=== PATIENT | female | born 1985 | race Caucasian/White ===

== ENCOUNTER 2020-07-06 08:53 | Emergency (ER) | payer MEDICAID ==
[~2020-07-06] VITALS: Ht 175.3 cm; Wt 90.3 kg
[~2020-07-06 08:53] MED LIST: PRENAVITE TABLETS
[2020-07-06 09:31] LABS: Basophils # (auto) 0 10 ^3/uL (0-0.2); Basophils % (auto) 0.4 % (0.0-2.0); Eosinophils # (auto) 0.3 10 ^3/uL (0-0.8); Eosinophils % (auto) 4.6 % (0.0-7.0); Hematocrit 36.5 % (36.0-46.0); Hemoglobin 12.5 g/dL (12.2-16.2); Lymphocytes # (auto) 1.7 10 ^3/uL (0.4-5.4); Lymphocytes % (auto) 23.9 % (10.0-50.0); Mean Corpuscular Hemoglobin 30.3 pg (28.0-32.0); Mean Corpuscular Hgb Conc. 34.2 g/dL (32.0-36.0); Mean Corpuscular Volume 88.8 fL (80.0-100.0); Monocytes # (auto) 0.3 10 ^3/uL (0-1.3); Monocytes % (auto) 4.4 % (0.0-12.0); Neutrophils # (auto) 4.8 10 ^3/uL (1.6-8.6); Neutrophils % (auto) 66.7 % (37.0-80.0); Nucleated Red Blood Cells % 0.1 %; Platelet Count (auto) 240 10^3/uL (140-450); Red Cell Distribution Width 12.8 % (11.8-14.3); White Blood Cell 7.2 10^3/uL (4.4-10.8)
[2020-07-06 09:34] LABS: Urine Bacteria NONE SEEN /hpf (None Seen); Urine Blood 2+ /uL (Negative); Urine Specific Gravity 1.008 (1.001-1.035); Urine WBC 1 /hpf (0 - 5)
[2020-07-06 11:24] VITALS: BP 136/87
== END 2020-07-06 11:25 | disposition home or self-care (01) ==
LOC: ER 08:53
DX: O20.8 Other hemorrhage in early pregnancy (principal); Z3A.01 Less than 8 weeks gestation of pregnancy
CPT/HCPCS: 36415; 76805; 81001; 84702; 85025

== ENCOUNTER 2020-08-17 12:38 | Observation (INO) | payer MEDICAID ==
[2020-08-17] MEDS ORDERED: PREN-96 PO (12:56)
== END 2020-08-17 15:09 | disposition home or self-care (01) ==
LOC: LDRP 12:38
PROVIDERS: ADMIT Specialist; ATTEND Specialist
DX: O26.892 Other specified pregnancy related conditions, second trimester (principal); R19.7 Diarrhea, unspecified; Z20.828 Contact with and (suspected) exposure to other viral communicable diseases; Z3A.23 23 weeks gestation of pregnancy
CPT/HCPCS: 36415; 59025; 81002; 87426; G0378; U0003

== ENCOUNTER 2020-12-05 19:08 | Inpatient (IN) | payer MEDICAID ==
[~2020-12-05] VITALS: Ht 30.5 cm; Wt 0.5 kg
[~2020-12-05 19:08] MED LIST changes: +PREN-96 PO
[2020-12-05] MEDS ORDERED: miSOPROStol 50 MCG per PRE-CUT 1/2 TAB PO STA (20:36)
[2020-12-05] MEDS ORDERED: LACTATED RINGER'S 1,000 ML IV SCH (20:45)
[2020-12-05] MEDS ORDERED: PROMETHAZINE HCL 25 MG/ML 1ML IM PRN (20:45)
[2020-12-05] MEDS ORDERED: PHISODERM TOP SOLN 240ML BTL TOP PRN (20:45)
[2020-12-05] MEDS ORDERED: LIDOCAINE 2%HCL (LOCAL ANESTH.) INJ 20ML MDV IJ ONE (20:45)
[2020-12-05] MEDS ORDERED: BUTORPHANOL TARTRATE 2 MG/1 ML VIAL IV PRN (20:45)
[2020-12-05] MEDS ORDERED: DERMOPLAST 60ML BOTTLE TOP PRN (20:45)
[2020-12-05] MEDS ORDERED: WITCH HAZEL-GLYCERIN PAD TOP PRN (20:45)
[2020-12-05 21:25] LABS: Basophils # (auto) 0.1 10 ^3/uL (0-0.2); Basophils % (auto) 0.6 % (0.0-2.0); Eosinophils # (auto) 0.1 10 ^3/uL (0-0.8); Eosinophils % (auto) 0.6 % (0.0-7.0); Hematocrit 35.9 % (36.0-46.0); Hemoglobin 12.6 g/dL (12.2-16.2); Lymphocytes # (auto) 2.1 10 ^3/uL (0.4-5.4); Lymphocytes % (auto) 19.7 % (10.0-50.0); Mean Corpuscular Hemoglobin 29.9 pg (28.0-32.0); Mean Corpuscular Hgb Conc. 35.2 g/dL (32.0-36.0); Mean Corpuscular Volume 84.9 fL (80.0-100.0); Monocytes # (auto) 0.4 10 ^3/uL (0-1.3); Monocytes % (auto) 4.2 % (0.0-12.0); Neutrophils % (auto) 74.9 % (37.0-80.0); Nucleated Red Blood Cells % 0.1 %; Platelet Count (auto) 196 10^3/uL (140-450); Red Blood Cells 4.23 10^6/uL (4.0-5.20); Red Cell Distribution Width 14.3 % (11.8-14.3); White Blood Cell 10.7 10^3/uL (4.4-10.8)
[2020-12-05 21:42] LABS: Albumin 2.9 g/dL (3.4-5.0); Calcium 8.1 mg/dL (8.5-10.1); Potassium 3.6 mmol/L (3.5-5.1)
[2020-12-05 21:45] LABS: BUN/Creatinine Ratio 13.6; Bilirubin, Total 0.4 mg/dL (0.2-1.0); INR 0.89 (0.9-1.15); Partial Thromboplastin Time 24.2 sec (23.0-31.2); Total Protein 6.5 g/dL (6.4-8.2)
[2020-12-05] MEDS ORDERED: LACT. RINGERS/OXYTOCIN 20UNITS 1,000 ML IV STA (22:56)
[2020-12-05] MEDS ORDERED: LACT. RINGERS/OXYTOCIN 20UNITS 1,000 ML IV ONE (22:57)
[2020-12-06 03:06] LABS: Alcohol, Urine < 3.0 mg/dL (0-10); Amphetamine Screen, Urine NEGATIVE (NEGATIVE); Barbiturate Scree,Urine NEGATIVE (NEGATIVE); Benzodiazephine Screen, Urine NEGATIVE (NEGATIVE); Cannabinoid Screen, Urine NEGATIVE (NEGATIVE); Cocaine Screen, Urine NEGATIVE (NEGATIVE); Opiate Scree,Urine NEGATIVE (NEGATIVE); Phencyclidine Screen, Urine NEGATIVE (NEGATIVE)
[2020-12-06] MEDS: IBUPROFEN 600 MG TAB PO PRN ×4 (03:36→21:47)
[2020-12-06 07:17] VITALS: BP 114/68
[2020-12-06 11:12] VITALS: BP 121/73
[2020-12-06 15:00] VITALS: BP 139/86
[2020-12-06] MEDS: ACETAMINOPHEN 325 MG TAB PO PRN (15:50)
[2020-12-06 19:00] VITALS: BP 112/73
[2020-12-06 23:30] VITALS: BP 120/72
[2020-12-07] MEDS: IBUPROFEN 600 MG TAB PO PRN ×3 (00:26→09:28)
[2020-12-07] MEDS: ACETAMINOPHEN 325 MG TAB PO PRN (00:26)
[2020-12-07 03:30] VITALS: BP 114/74
[2020-12-07 06:30] VITALS: BP 114/53
[2020-12-07] MEDS ORDERED: NITROGLYCERIN 0.4 MG SL TAB SL PRN (10:15)
[2020-12-07] MEDS ORDERED: MORPHINE SULF INJ 2 MG/ML SYRINGE 1ML IV PRN (10:15)
[2020-12-08 08:06] LABS: RPR Non Reactive (Non Reactive)
== END 2020-12-07 09:55 | disposition home or self-care (01) | DRG 560 ==
LOC: OBSVTOIN 19:08 → LDRP 19:08
PROVIDERS: ADMIT Specialist; ATTEND Specialist
PROC: 10E0XZZ Delivery of Products of Conception, External Approach (ICD-10-PCS; principal; 2020-12-05)
DX: O69.81X0 Labor and delivery complicated by cord around neck, without compression, not applicable or unspecified (principal); Z3A.39 39 weeks gestation of pregnancy; Z37.0 Single live birth; Z20.822 Contact with and (suspected) exposure to COVID-19
CPT/HCPCS: 36415; 59025; 59409; 80053; 80307; 81002; 84112; 85025; 85610; 85730; 86592; 86850; 86900; 86901; 87426; 94760; 96360; 96361; 96365; 96372; 96374; G0378; J2590

== ENCOUNTER → 2021-01-01 | Day surgery (SDC) | payer MEDICAID ==
[~2021-01-01] VITALS: Ht 175.3 cm; Wt 87.5 kg
[~2021-01-01] MED LIST changes: +GLYCOPYRROLATE 0.2 MG/ML 1ML VIAL ONE; +IBUP800T27 PO; +LACTATED RINGER'S 1,000 ML IV SCH; +LIDOCAINE 2% (LOCAL ANESTH.) PF 5ml SDV ONE; +MIDAZOLAM HCL 1MG/1ML-2 ML VIAL ONE; +NEOSTIGMINE 1 MG/ML INJ (10mg/10ML VIAL) ONE; +ONDANSETRON HCL 4 MG/2 ML VIAL IV PRN; +ONDANSETRON HCL 4 MG/2 ML VIAL ONE; -PRENAVITE TABLETS; +PROPOFOL 10 MG/ML 20 ML IV ONE; +ROCURONIUM 10MG/ML 10ML VIAL IV ONE; +ceFAZolin 1GM/50ML 50 ML IV ONE; +fentaNYL CITRATE 100 MCG/2 ML VL ONE
[2021-01-01] MEDS: HYDROmorphone HCL 2 MG/ML VL IV PRN ×2 (08:45→08:55)
[2021-01-01 09:20] VITALS: BP 120/84
== END | disposition home or self-care (01) ==
LOC: SUR 06:20
PROVIDERS: ATTEND Obstetrics & Gynecology
DX: Z30.2 Encounter for sterilization (principal); Z98.890 Other specified postprocedural states; Z79.899 Other long term (current) drug therapy; Z20.822 Contact with and (suspected) exposure to COVID-19; Z91.018 Allergy to other foods; Z91.012 Allergy to eggs
CPT/HCPCS: 58671; 86850; 86900; 86901; J0690; J1170; J2001; J2250; J2405; J2704; J3010; U0003

== ENCOUNTER 2024-04-19 19:36 | Emergency (ER) | payer MEDICAID ==
[~2024-04-19] VITALS: Ht 175.3 cm; Wt 92.1 kg
[~2024-04-19 19:36] MED LIST changes: -GLYCOPYRROLATE 0.2 MG/ML 1ML VIAL ONE; +IBUP-1456 PO; -IBUP800T27 PO; -LACTATED RINGER'S 1,000 ML IV SCH; -LIDOCAINE 2% (LOCAL ANESTH.) PF 5ml SDV ONE; -MIDAZOLAM HCL 1MG/1ML-2 ML VIAL ONE; -NEOSTIGMINE 1 MG/ML INJ (10mg/10ML VIAL) ONE; -ONDANSETRON HCL 4 MG/2 ML VIAL IV PRN; -ONDANSETRON HCL 4 MG/2 ML VIAL ONE; -PROPOFOL 10 MG/ML 20 ML IV ONE; -ROCURONIUM 10MG/ML 10ML VIAL IV ONE; -ceFAZolin 1GM/50ML 50 ML IV ONE; -fentaNYL CITRATE 100 MCG/2 ML VL ONE
[2024-04-19] MEDS: DexAMETHasone SOD PHOS 10MG/1ML VIAL INJ IM ONE (20:14)
[2024-04-19] MEDS: FAMOTIDINE 20 MG TAB PO ONE (20:14)
[2024-04-19 20:15] VITALS: BP 124/88; PULSE 103; RESP 20; TEMP 98.6; O2SAT 97
[2024-04-19] MEDS ORDERED: PRED20TA2 PO (21:30)
== END 2024-04-19 21:41 | disposition home or self-care (01) ==
LOC: ER 19:36
DX: T78.49XA Other allergy, initial encounter (principal); Z91.018 Allergy to other foods; Z79.899 Other long term (current) drug therapy; X58.XXXA Exposure to other specified factors, initial encounter
CPT/HCPCS: 96372; 99283; J1100